=== PATIENT | female | born 1950 | race Caucasian/White ===

== ENCOUNTER → 2016-08-03 | Outpatient (CLI) | payer OTHER ==
--- NOTE | 2016-08-04 07:42 | MAMMOGRAPHY REPORT ---
BILATERAL DIGITAL SCREENING MAMMOGRAM WITH CAD: 08/03/2016 CLINICAL HISTORY: Routine screening. Patient has no complaints. TECHNIQUE: Current study was also evaluated with a Computer Aided Detection (CAD) system. Bilatera l CC and MLO views were obtained. COMPARISON: Comparison is made to exams dated: 08/03/2015 mammogram, 07/28/2014 mammogram, 06/23/2013 m ammogram, 06/20/2011 mammogram, 06/15/2010 mammogram, and 06/21/2012 mammogram - [facility]. BREAST COMPOSITION: There are scattered areas of fibroglandular density in both breasts. FINDINGS: No suspicious masses, calcifications, or areas of architectural distortion are noted in e ither breast. There has been no significant interval change compared to prior exams. Scattered bilat eral benign-appearing calcifications are not significantly changed. Asymmetry seen within the left medial breast on the cc view is stable dating back to at least the 2008 exam. IMPRESSION: ACR BI-RADS CATEGORY 2: BENIGN There is no mammographic evidence of malignancy. A 1 year screening mammogram is recommended. The p atient will receive written notification of the results. Approximately 10% of breast cancers are not detected with mammography. A negative mammographic repor t should not delay biopsy if a clinically suggestive mass is present. Ines Perez M.D. /:08/03/2016 14:45:43 Fingerprint Technician: Angeli VALENTINO)(Dixie), [facility] letter sent: Normal 1/2 BI-RADS Code: ACR BI-RADS Category 2: Benign
== END | disposition home or self-care (01) ==
LOC: C.MAMM 12:54
PROVIDERS: ATTEND Student in an Organized Health Care Education/Training Program
DX: Z12.31 Encounter for screening mammogram for malignant neoplasm of breast (principal)

== ENCOUNTER → 2017-08-07 | Outpatient (CLI) | payer OTHER ==
--- NOTE | 2017-08-09 07:55 | MAMMOGRAPHY REPORT ---
BILATERAL DIGITAL SCREENING MAMMOGRAM TOMOSYNTHESIS WITH CAD: 08/07/2017 CLINICAL HISTORY: Routine screening. Patient has no complaints. TECHNIQUE: Breast tomosynthesis in addition to standard 2D mammography was performed. Current study was also evaluated with a Computer Aided Detection (CAD) system. COMPARISON: Comparison is made to exams dated: 08/03/2016 mammogram, 08/03/2015 mammogram, 07/28/2014 zach mogram, 06/21/2012 mammogram, 06/20/2011 mammogram, and 06/15/2010 mammogram - [facility]. BREAST COMPOSITION: The tissue of both breasts is heterogeneously dense, which may obscure small mas ses. FINDINGS: There are possible clusters of microcalcifications in the upper outer middle one third and lower inner posterior left breast, warranting additional spot magnification views. No other suspicious mass, architectural distortion or cluster of microcalcifications is seen bilatera lly. IMPRESSION: ACR BI-RADS CATEGORY 0: INCOMPLETE EVALUATION: NEED ADDITIONAL IMAGING EVALUATION The possible clusters of microcalcifications in the left breast need additional imaging evaluation. The patient will be called to schedule an appointment. Approximately 10% of breast cancers are not detected with mammography. A negative mammographic report should not delay biopsy if a clinically suggestive mass is present. Rayne Duong M.D. ay/:08/07/2017 16:01:51 Component Overhaul Operator: Angeli JENSEN(Lisa)(Dixie), [facility] letter sent: Addl Imaging 0 BI-RADS Code: ACR BI-RADS Category 0: Incomplete Evaluation: Need Additional Imaging Evaluation
== END | disposition home or self-care (01) ==
LOC: C.MAMM 10:58
PROVIDERS: ATTEND Student in an Organized Health Care Education/Training Program
DX: Z12.31 Encounter for screening mammogram for malignant neoplasm of breast (principal); R92.2 Inconclusive mammogram

== ENCOUNTER → 2017-09-12 | Outpatient (CLI) | payer OTHER ==
--- NOTE | 2017-09-12 15:25 | MAMMOGRAPHY REPORT ---
UNILATERAL LEFT DIGITAL DIAGNOSTIC MAMMOGRAM: 09/12/2017 CLINICAL HISTORY: Callback from screening mammogram for left breast calcifications. TECHNIQUE: Spot magnification left CC and ML views were obtained. COMPARISON: Comparison is made to exams dated: 08/07/2017 mammogram, 08/03/2016 mammogram, 08/03/2015 zach mogram, 07/28/2014 mammogram, 06/23/2013 mammogram, and 06/21/2012 mammogram - [facility]. BREAST COMPOSITION: The tissue of the left breast is heterogeneously dense, which may obscure small masses. FINDINGS: Spot magnification views of the left breast demonstrate a new cluster of pleomorphic calcif ications in the left lateral breast at 3:00 measuring approximately 9 mm. Additionally, there are ne w grouped pleomorphic calcifications within the left inferior posterior breast, only visualized well visualized on the lateral view due to the far posterior location but thought to project medially base d on the screening mammogram; this group measures approximately 15 mm. Other punctate benign-appeari ng calcifications are seen scattered throughout the left breast, which are likely not significantly c hanged compared to the cc view from the 2011 exam. The 2 new groups of calcifications within the lef t breast are indeterminate and stereotactic biopsy is recommended for further evaluation. IMPRESSION: ACR BI-RADS CATEGORY 4: SUSPICIOUS Two new groups of calcifications within the left 3:00 breast and left lower inner quadrant. The calc ifications are indeterminate and stereotactic biopsy 2 is recommended for further evaluation. A phone call was made to the physician's office to confirm faxed results were received. The patient has been verbally notified of the results. She tentatively scheduled the biopsies before leaving the department. Approximately 10% of breast cancers are not detected with mammography. A negative mammographic report should not delay biopsy if a clinically suggestive mass is present. Ines Perez M.D. /:09/12/2017 11:19:37 Disk Operator: Tod JENSEN(Lisa)(Dixie), [facility] letter sent: Abnormal 4/5 BI-RADS Code: ACR BI-RADS Category 4: Suspicious
== END | disposition home or self-care (01) ==
LOC: C.MAMM 10:41
PROVIDERS: ATTEND Student in an Organized Health Care Education/Training Program
DX: R92.0 Mammographic microcalcification found on diagnostic imaging of breast (principal); R92.1 Mammographic calcification found on diagnostic imaging of breast